=== PATIENT | male | born 2000 | race Caucasian/White ===

== ENCOUNTER 2024-06-30 01:24 | Emergency (ER) | payer OTHER ==
[~2024-06-30] VITALS: Ht 195.6 cm; Wt 88.6 kg
[2024-06-30 01:55] VITALS: TEMP 103.1
[2024-06-30] MEDS ORDERED: Albuterol 0.083% Neb Soln 2.5 MG/3 ML UD IH ONE (04:00)
[2024-06-30] MEDS ORDERED: PROAIR HFA0.09 MG/AC IH (05:06)
[2024-06-30] MEDS ORDERED: BROMFED DM COU118 ML PO (05:06)
[2024-06-30] MEDS ORDERED: TESSALON P100 MG/CAP PO (05:06)
[2024-06-30] MEDS ORDERED: ZITHROMAX Z PA250 MG PO (05:06)
[2024-06-30] MEDS ORDERED: Azithromycin 250 MG TAB PO ONE (05:15)
[2024-06-30 05:28] VITALS: BP 145/74; PULSE 120
== END 2024-06-30 05:30 | disposition home or self-care (01) ==
LOC: COL.ER 01:24
DX: J18.9 Pneumonia, unspecified organism (principal)